=== PATIENT | male | born 1980 | race Caucasian/White ===

== ENCOUNTER 2023-01-13 11:13 | Emergency (ER) | payer MEDICARE, OTHER ==
[~2023-01-13] VITALS: Ht 137.2 cm; Wt 47.7 kg
[2023-01-13 11:35] VITALS: TEMP 98.4
[2023-01-13] MEDS ORDERED: BARIUM SULFATE 0.1% SUSPENSION 450 ML BOTTLE PEG ONE (14:45)
[2023-01-13 18:30] VITALS: BP 155/83; PULSE 81; RESP 16
== END 2023-01-13 18:56 | disposition home or self-care (01) ==
LOC: EMS 11:13
DX: Z43.1 Encounter for attention to gastrostomy (principal); I10 Essential (primary) hypertension; E03.9 Hypothyroidism, unspecified; G80.9 Cerebral palsy, unspecified; Z98.890 Other specified postprocedural states
CPT/HCPCS: 99284; 74176; 74018; Q9967